=== PATIENT | male | born 1965 | race Two or more races ===

== ENCOUNTER 2016-06-28 23:28 | Emergency (ER) | payer SELFPAY ==
[~2016-06-28] VITALS: Ht 167.6 cm; Wt 105.2 kg
[2016-06-28 23:34] VITALS: BP 188/113
[2016-06-29] MEDS ORDERED: FLUORESCEIN OPHTHALMIC 1 MG STRIP ONE ×2 (00:02→00:18)
[2016-06-29] MEDS ORDERED: PROPARACAINE OPHTH 0.5%, 15ML ONE (00:19)
== END 2016-06-29 01:01 | disposition home or self-care (01) ==
LOC: ED 06-29 00:05
DX: H10.212 Acute toxic conjunctivitis, left eye (principal); E11.9 Type 2 diabetes mellitus without complications
CPT/HCPCS: 99283